=== PATIENT | male | born 1990 | race Caucasian/White ===

== ENCOUNTER 2020-04-25 09:43 | Emergency (ER) | payer OTHER ==
[~2020-04-25] VITALS: Ht 170.2 cm; Wt 86.2 kg
[2020-04-25 09:50] VITALS: Ht 170.2 cm; Wt 86.2 kg
[2020-04-25 12:01] VITALS: BP 116/76
== END 2020-04-25 12:02 | disposition home or self-care (01) ==
LOC: ED 09:43
DX: S06.0X0A Concussion without loss of consciousness, initial encounter (principal); E03.9 Hypothyroidism, unspecified; W51.XXXA Accidental striking against or bumped into by another person, initial encounter; Y93.89 Activity, other specified; Y92.89 Other specified places as the place of occurrence of the external cause; Y99.8 Other external cause status